=== PATIENT | female | born 1965 | race Caucasian/White ===

== ENCOUNTER → 2020-09-23 | Outpatient (CLI) | payer MEDICAID ==
[~2020-09-23] MED LIST: ALPR0.25 PO; BENA20TA10 PO; HYDR12.54 PO; LEVO88TA2 PO
== END | disposition home or self-care (01) ==
LOC: LAB 09:43
PROVIDERS: ATTEND Neurological Surgery
DX: Z01.812 Encounter for preprocedural laboratory examination (principal); Z20.822 Contact with and (suspected) exposure to COVID-19
CPT/HCPCS: 87426

== ENCOUNTER 2020-09-25 06:03 | Inpatient (IN) | payer MEDICAID, OTHER ==
[~2020-09-25] VITALS: Ht 162.6 cm; Wt 108.4 kg
[2020-09-25] VITALS (31 sets, daily range): BP systolic 91–129; BP diastolic 41–73
[2020-09-25] MEDS ORDERED: THROMBIN (BOVINE) 5000 UNITS/VIAL TOP ONE (06:55)
[2020-09-25] MEDS ORDERED: GENTAMICIN SULF 40MG/ML 2ML VIAL ONE (06:55)
[2020-09-25] MEDS ORDERED: LACTATED RINGERS 1,000 ML IV SCH (07:30)
[2020-09-25] MEDS ORDERED: NICARDIPINE 100 MG in SODIUM CHLORIDE 0.9% 60 ML IV PRN (08:15)
[2020-09-25] MEDS ORDERED: HYDROMORPHONE HCL/PF 2MG/ML (OR) ONE (08:17)
[2020-09-25] MEDS ORDERED: ROCURONIUM BROMIDE 10MG/ML VIAL 5ML IV ONE (08:17)
[2020-09-25] MEDS ORDERED: CEFAZOLIN SODIUM 1000MG/VIAL ONE (08:18)
[2020-09-25] MEDS ORDERED: DEXAMETHASONE 4MG/ML 1ML VIAL ONE (08:18)
[2020-09-25] MEDS ORDERED: ALBUMIN HUMAN 25GM/100ML (25%) IV ONE (08:37)
[2020-09-25] MEDS ORDERED: LABETALOL HCL 5MG/ML VIAL 20ML IV ONE (08:48)
[2020-09-25] MEDS ORDERED: HYDRALAZINE 20MG/ML VIAL ONE ×2 (08:48→10:10)
[2020-09-25] MEDS ORDERED: GLYCOPYRROLATE 0.2 MG/ML 2ML VIAL ONE (10:12)
[2020-09-25] MEDS ORDERED: NEOSTIGMINE METHYLSULFATE 1MG/ML 10 ML VIAL ONE (10:12)
[2020-09-25] MEDS: MORPHINE SULFATE 4 MG/ML CPJ (NOT FOR IM USE) IV PRN ×2 (10:46→20:58)
[2020-09-25] MEDS: DEXT 5%/LACTATED RINGERS 1,000 ML IV SCH ×2 (10:54→20:09)
[2020-09-25] MEDS ORDERED: DIPHENHYDRAMINE INJ IV PRN (11:15)
[2020-09-25] MEDS ORDERED: NALOXONE INJ IV PRN (11:15)
[2020-09-25] MEDS ORDERED: HYDROMORPHONE PCA 10MG/50ML IV PRN (11:15)
[2020-09-25] MEDS ORDERED: ONDANSETRON INJ IV PRN (11:15)
[2020-09-25] MEDS: DEXAMETHASONE 4MG/ML 1ML VIAL IV SCH ×2 (11:44→17:51)
[2020-09-25] MEDS: ALPRAZOLAM 0.25 MG TABLET PO PRN ×2 (12:54→19:04)
[2020-09-25] MEDS ORDERED: DIPHENHYDRAMINE 50MG/ML VIAL IV PRN (13:00)
[2020-09-25] MEDS ORDERED: IPRATROPIUM/ALBUTEROL 0.5-3(2.5)MG/3ML NEB HHN PRN (13:00)
[2020-09-25] MEDS ORDERED: ACETAMINOPHEN 325MG TABLET PO PRN (13:00)
[2020-09-25] MEDS ORDERED: CLONIDINE 0.1MG TABLET PO PRN (13:00)
[2020-09-25] MEDS ORDERED: CEFAZOLIN SODIUM 1000MG/VIAL IV SCH (14:00)
[2020-09-25 14:47] LABS: HEMATOCRIT. 35.8 % (36.0-48.0); HEMOGLOBIN. 11.9 g/dL (12.0-16.0); MEAN CORPUSCULAR HEMOGLOBIN 28.4 pg (28.0-32.0); MEAN CORPUSCULAR VOLUME 85.5 fL (81.0-99.0); RED BLOOD CELL COUNT 4.19 mill/uL (4.2-5.4); RED CELL DISTRIBUTION WIDTH 13.7 % (11.6-14.6)
[2020-09-25 15:10] LABS: CHLORIDE 103 mEq/L (98-107)
[2020-09-25 17:00] LABS: MEAN PLATELET VOLUME 8.4 fl (7.4-10.4); PLATELET 239 x1000/uL (130-400)
[2020-09-25 17:02] LABS: PLATELET ESTIMATE NORMAL
[2020-09-25] MEDS: CEFAZOLIN 1000MG PREMIX 50 ML IV SCH ×2 (17:51→23:58)
[2020-09-25] MEDS ORDERED: KCL 20MEQ/100ML PREMIX 100 ML IV NR (22:00)
[2020-09-25] MEDS: HYDROCODONE/ACETAMINOPHEN 5/325MG TABLET PO PRN (23:59)
[2020-09-26] VITALS (39 sets, daily range): BP systolic 94–131; BP diastolic 39–70
[2020-09-26] MEDS: DEXAMETHASONE 4MG/ML 1ML VIAL IV SCH ×4 (00:02→17:49)
[2020-09-26] MEDS: MORPHINE SULFATE 4 MG/ML CPJ (NOT FOR IM USE) IV PRN ×4 (04:26→22:22)
[2020-09-26] MEDS: DEXT 5%/LACTATED RINGERS 1,000 ML IV SCH ×2 (04:27→16:35)
[2020-09-26] MEDS: HYDROCODONE/ACETAMINOPHEN 5/325MG TABLET PO PRN (05:34)
[2020-09-26 05:44] LABS: HEMATOCRIT. 36.4 % (36.0-48.0); HEMOGLOBIN. 11.8 g/dL (12.0-16.0); MEAN CORPUSCULAR HEMOGLOBIN 27.7 pg (28.0-32.0); MEAN CORPUSCULAR VOLUME 85.2 fL (81.0-99.0); MEAN PLATELET VOLUME 8.9 fl (7.4-10.4); PLATELET 259 x1000/uL (130-400); RED BLOOD CELL COUNT 4.28 mill/uL (4.2-5.4)
[2020-09-26 05:49] LABS: CHLORIDE 101 mEq/L (98-107)
[2020-09-26 05:58] LABS: LDL CHOLESTEROL 105 mg/dL (5-100)
[2020-09-26 06:00] LABS: HDL CHOLESTEROL 52 mg/dL (40-59)
[2020-09-26] MEDS: LEVOTHYROXINE SODIUM 88MCG TABLET PO SCH (08:01)
[2020-09-26] MEDS: CEFAZOLIN 1000MG PREMIX 50 ML IV SCH ×2 (08:01→16:35)
[2020-09-26] MEDS: BENAZEPRIL 10MG TABLET PO SCH (08:03)
[2020-09-26] MEDS: DOCUSATE SODIUM 100MG CAPSULE PO SCH ×2 (08:03→17:49)
[2020-09-26] MEDS ORDERED: HYDROCHLOROTHIAZIDE 25MG TABLET PO SCH (09:00)
[2020-09-26] MEDS: ALPRAZOLAM 0.25 MG TABLET PO PRN (09:11)
[2020-09-26 12:28] LABS: PLATELET ESTIMATE NORMAL
[2020-09-26 19:17] LABS: CLARITY URINE CLEAR (CLEAR); COLOR URINE YELLOW (YELLOW); KETONES URINE NEGATIVE (NEGATIVE); LEUKOCYTE ESTERASE URINE NEGATIVE (NEGATIVE); NITRITE URINE NEGATIVE (NEGATIVE); OCCULT BLOOD URINE 1+ (NEGATIVE); PH URINE 6.5 (4.5-8.0); PROTEIN URINE NEGATIVE (NEGATIVE); SPECIFIC GRAVITY URINE 1.011 (1.005-1.030); UROBILINOGEN URINE 0.2 E.U./dL (0.2-1.0)
[2020-09-27] VITALS: BP 108/58
[2020-09-27] MEDS: DEXAMETHASONE 4MG/ML 1ML VIAL IV SCH ×3 (00:31→12:29)
[2020-09-27] MEDS: DEXT 5%/LACTATED RINGERS 1,000 ML IV SCH ×2 (00:33→11:00)
[2020-09-27] MEDS: MORPHINE SULFATE 4 MG/ML CPJ (NOT FOR IM USE) IV PRN (01:58)
[2020-09-27 04:00] VITALS: BP 133/64
[2020-09-27 06:35] LABS: HEMATOCRIT. 34.2 % (36.0-48.0); HEMOGLOBIN. 11.2 g/dL (12.0-16.0); MEAN CORPUSCULAR HEMOGLOBIN 28.2 pg (28.0-32.0); MEAN CORPUSCULAR VOLUME 85.9 fL (81.0-99.0); MEAN PLATELET VOLUME 9.1 fl (7.4-10.4); PLATELET 247 x1000/uL (130-400); RED BLOOD CELL COUNT 3.98 mill/uL (4.2-5.4); RED CELL DISTRIBUTION WIDTH 14.5 % (11.6-14.6)
[2020-09-27 06:57] LABS: CHLORIDE 106 mEq/L (98-107)
[2020-09-27 08:00] VITALS: BP 134/71
[2020-09-27] MEDS: DOCUSATE SODIUM 100MG CAPSULE PO SCH ×2 (09:43→17:02)
[2020-09-27] MEDS: BENAZEPRIL 10MG TABLET PO SCH (09:43)
[2020-09-27] MEDS: LEVOTHYROXINE SODIUM 88MCG TABLET PO SCH (09:43)
[2020-09-27] MEDS: HYDROCODONE/ACETAMINOPHEN 5/325MG TABLET PO PRN ×2 (09:44→20:13)
[2020-09-27] MEDS: FLUTICASONE PROPIONATE 50MCG/SPRAY BOTTLE BOTHNSTRLS SCH ×2 (11:00→20:13)
[2020-09-27 12:00] VITALS: BP 111/56
[2020-09-27 15:01] LABS: PLATELET ESTIMATE NORMAL
[2020-09-27 16:00] VITALS: BP 132/66
[2020-09-27 20:00] VITALS: BP 114/50
[2020-09-27] MEDS: ALPRAZOLAM 0.25 MG TABLET PO PRN (23:57)
[2020-09-28] VITALS: BP 121/67
[2020-09-28 04:00] VITALS: BP 128/63
[2020-09-28 06:55] LABS: BASOPHILS % 0.1 % (0.0-2.0); HEMATOCRIT. 34.9 % (36.0-48.0); HEMOGLOBIN. 11.4 g/dL (12.0-16.0); LYMPHOCYTES % 20.9 % (20.0-50.0); MEAN CORPUSCULAR HEMOGLOBIN 28.2 pg (28.0-32.0); MEAN CORPUSCULAR VOLUME 86.3 fL (81.0-99.0); MEAN PLATELET VOLUME 8.8 fl (7.4-10.4); MONOCYTES % 7.8 % (2.0-8.0); NEUTROPHILS % 71.2 % (40.0-76.0); PLATELET 241 x1000/uL (130-400); RED BLOOD CELL COUNT 4.05 mill/uL (4.2-5.4); RED CELL DISTRIBUTION WIDTH 14.2 % (11.6-14.6)
[2020-09-28 07:08] LABS: CHLORIDE 105 mEq/L (98-107)
[2020-09-28 08:00] VITALS: BP 132/64
[2020-09-28] MEDS ORDERED: HYDROCHLOROTHIAZIDE 12.5MG CAPSULE PO SCH (09:00)
[2020-09-28] MEDS: FLUTICASONE PROPIONATE 50MCG/SPRAY BOTTLE BOTHNSTRLS SCH (09:00)
[2020-09-28] MEDS: DOCUSATE SODIUM 100MG CAPSULE PO SCH (09:28)
[2020-09-28] MEDS: LEVOTHYROXINE SODIUM 88MCG TABLET PO SCH (09:28)
[2020-09-28] MEDS: HYDROCODONE/ACETAMINOPHEN 5/325MG TABLET PO PRN (09:30)
[2020-09-28] MEDS: BENAZEPRIL 10MG TABLET PO SCH (09:31)
[2020-09-28 12:00] VITALS: BP 106/70
[2020-09-28 13:46] VITALS: BP 106/70
== END 2020-09-28 16:35 | disposition home health service (06) | DRG 321 ==
LOC: OR 06:03 → MICUSO 06:04 → 6EST 09-26 20:09
PROVIDERS: ADMIT Internal Medicine; ATTEND Internal Medicine
PROC: 0RG20K0 Fusion of 2 or more Cervical Vertebral Joints with Nonautologous Tissue Substitute, Anterior Approach, Anterior Column, Open Approach (ICD-10-PCS; principal; 2020-09-25)
PROC: 4A11X4G Monitoring of Peripheral Nervous Electrical Activity, Intraoperative, External Approach (ICD-10-PCS; 2020-09-25)
PROC: 01N10ZZ Release Cervical Nerve, Open Approach (ICD-10-PCS; 2020-09-25)
PROC: 0RT30ZZ Resection of Cervical Vertebral Disc, Open Approach (ICD-10-PCS; 2020-09-25)
DX: M48.02 Spinal stenosis, cervical region (principal); G82.50 Quadriplegia, unspecified; M47.12 Other spondylosis with myelopathy, cervical region; E66.01 Morbid (severe) obesity due to excess calories; S14.109A Unspecified injury at unspecified level of cervical spinal cord, initial encounter; R13.10 Dysphagia, unspecified; Z68.41 Body mass index [BMI] 40.0-44.9, adult; M48.061 Spinal stenosis, lumbar region without neurogenic claudication; I10 Essential (primary) hypertension; F41.9 Anxiety disorder, unspecified; G89.29 Other chronic pain; M54.5 Low back pain; E03.9 Hypothyroidism, unspecified; M47.22 Other spondylosis with radiculopathy, cervical region; R26.89 Other abnormalities of gait and mobility; R73.9 Hyperglycemia, unspecified; D64.9 Anemia, unspecified; Z82.49 Family history of ischemic heart disease and other diseases of the circulatory system; Z79.899 Other long term (current) drug therapy
CPT/HCPCS: 36415; 71045; 72040; 72141; 76000; 80048; 80053; 80061; 81003; 84443; 85025; 86850; 86900; 88311; 95863; 95925; 95926; 95928; 95929; 97116; 97163; 97166; 97535; C1713; J0360; J0690; J1100; J1170; J1580; J2270; J2405; J2710; J3480; J3490; J7050; J7121; L0172; P9047; C1762